=== PATIENT | male | born 1985 | race African-American/Black ===

== ENCOUNTER 2023-02-22 16:53 | Emergency (ER) | payer MEDICAID ==
[~2023-02-22] VITALS: Ht 180.3 cm; Wt 79.4 kg
[2023-02-22 16:58] VITALS: O2SAT 100
[2023-02-22] MEDS ORDERED: IBUPROFEN 600MG TABLET PO ONE (18:45)
[2023-02-22 19:08] VITALS: BP 158/92; PULSE 88; RESP 18; TEMP 98.7
== END 2023-02-22 19:10 | disposition home or self-care (01) ==
LOC: ER 16:53
DX: M25.531 Pain in right wrist (principal)
CPT/HCPCS: 29125; 73110; 99283